=== PATIENT | female | born 1960 | race Caucasian/White ===

== ENCOUNTER 2016-08-21 13:05 | Day surgery (SDC) | payer OTHER ==
[~2016-08-21] VITALS: Ht 157.5 cm; Wt 59.0 kg
[2016-08-21 13:57] VITALS: Ht 157.5 cm; Wt 59.0 kg
[2016-08-21] MEDS ORDERED: ASPI81TA3 PO (14:07)
[2016-08-21] MEDS ORDERED: LEVOTHYROXINE PO (14:07)
[2016-08-21 15:21] VITALS: BP 124/77; PULSE 66; RESP 18
[2016-08-21] MEDS ORDERED: PROPOFOL 20 ML ONE (15:32)
[2016-08-21 16:38] VITALS: BP 126/77; RESP 20
--- NOTE | 2016-08-22 05:30 | GILP ---
DATE OF PROCEDURE: 08/21/2016 PROCEDURE: Colonoscopy to cecum. PREMEDICATION: Monitored anesthesia care by anesthesiologist. SURGEON: Ben Knapp MD. INSTRUMENT USED: Olympus colonoscope. PREPARATION: Adequate TECHNIQUE: After informed consent, with the patient/relatives understanding the procedure, its indic ations potential risks and complications, including but not limited to: allergic reaction, bleeding, perforation, infection, missed lesions and after all pertinent questions were answered to the patie nt's satisfaction, the patient/relatives signed the witnessed informed consent. Following this, premedication was administered slowly IV push by under careful cardiovascular and re spiratory monitoring with pulse oximetry, automatic blood pressure and lunchroom monitor. Once the sedativ e effect was achieved, the patient was placed in the left lateral decubitus position, digital rectal examination was performed. The colonoscope was then introduced and advanced under visual control th roughout all segments of the colon including: the rectum, sigmoid, descending colon, splenic flexure , transverse colon, hepatic flexure, ascending colon and finally reaching the cecum which was clearl y identified by transillumination, finger indentation and the ileocecal valve. Careful examination o f the mucosa of the lower gastrointestinal tract both on insertion as well as withdrawal of the inst rument disclosed the following findings: Rectal Examination: No evidence of perirectal disease, no masses. Colonic Mucosa: The colonic mucosa shows entirely normal colonic mucosa throughout. The ileocecal valve was clearly identified and appears unremarkable. The instrument was withdrawn reexamining the mucosa in detail. No additional abnormalities are noted with exception of moderate sized internal hemorrhoids. The instrument was then withdrawn, the patient tolerated the procedure well and was transferred out of the Endoscopy Suite awake and in good condition to continue recovery under observation. IMPRESSION: 1. Normal colonic mucosa to cecum 2. Moderate size internal hemorrhoids. PLAN: The patient will be continued on present regimen. Screening colonoscopy in 10 years is recom mended. Dictated By: BEN VELASQUEZ Conf#: [id number] DID#: [id number]
--- NOTE | 2016-08-22 05:33 | GILP ---
DATE OF PROCEDURE: 08/21/2016 DATE: 08/21/2016 NAME OF PROCEDURE: Esophagogastroduodenoscopy with biopsies. SURGEON: Ben Knapp MD PREMEDICATION: Monitored anesthesia care by anesthesiologist. INSTRUMENT USED: Olympus pandendoscope. TECHNIQUE: After informed consent, with the patient/relatives understanding the procedure, its indic ations, potential risks and complications, including but not limited to: allergic reaction, bleeding , perforation or infection, and after all pertinent questions were answered to the patients satisfac tion, the patient/relatives signed witnessed informed consent. Following this, premedication was administered slowly IV push under careful cardiovascular and respi ratory monitoring with pulse oximetry, automatic blood pressure and classroom monitor. Once the sedative effect was achieved the patient was place in the left lateral decubitus, the panen doscope was introduced and advanced under visual control. Careful examination of the upper gastrointestinal tract, both on insertion as well as withdrawal of the instrument disclosed the following findings: ESOPHAGUS: The distal esophagus shows erythema and edema of the mucosa of a moderate degree. A sma ll hiatal hernia is present. STOMACH: Upon entrance to the stomach air was insufflated, the gastric tan distended normally. The re was erythema and edema of mucosa of a moderate degree. Biopsies were obtained to rule out H. pylo nate infection. PYLORUS: The pylorus appears patent and within normal limits, with no evidence of gastric outlet obs truction. DUODENUM: The duodenal mucosa was carefully examined in the duodenal bulb as well as the second port ion of the duodenum and appears unremarkable with no evidence of duodenitis, ulcer or neoplasm. The instrument was then withdrawn, the patient tolerated the procedure well and was transfer out of the endoscopy suite awake, and in good condition to continue recovery under observation IMPRESSION: 1. Distal esophagitis. 2. Hiatal hernia. 3. Gastritis, rule out Helicobacter pylori infection. PLAN: The patient will be treated with PPIs. Pathology will be reviewed as soon as available. Fur ther recommendations will depend on the patient's clinical course. Dictated By: BEN KNAPP MS/JERMAINE Conf#: [id number] DID#: [id number]
== END 2016-08-21 16:44 | disposition home or self-care (01) ==
LOC: GIL 13:05
PROVIDERS: ATTEND Internal Medicine Gastroenterology
DX: Z12.11 Encounter for screening for malignant neoplasm of colon (principal); K64.8 Other hemorrhoids; K20.8 Other esophagitis; K44.9 Diaphragmatic hernia without obstruction or gangrene; K29.70 Gastritis, unspecified, without bleeding; E03.9 Hypothyroidism, unspecified
CPT/HCPCS: 43239; 45378; 88305; 88312; Z7610